=== PATIENT | female | born 1985 | race Caucasian/White ===

== ENCOUNTER 2018-06-11 06:08 | Observation (INO) ==
[2018-06-11] MEDS ORDERED: Bupivacaine PF 0.25% Inj 30 ML Vial ONE (07:00)
[2018-06-11] MEDS ORDERED: Metoprolol Tartrate 25 MG Tablet PO SCH (07:12)
[2018-06-11] MEDS ORDERED: Chlorhexidine Gluconate 2% 1 Pack (2 Cloths) TOPICAL SCH (07:12)
[2018-06-11] MEDS ORDERED: Ketamine Inj 50 MG/5 ML Syringe IV.PUSH ONE (07:32)
[2018-06-11] MEDS ORDERED: Glycopyrrolate Inj 1 MG/5 ML Syringe IV.PUSH ONE (07:48)
[2018-06-11] MEDS ORDERED: Phenylephrine/NS 1000 MCG/10ML Syringe IV.PUSH ONE (07:48)
[2018-06-11] MEDS ORDERED: Lidocaine PF 1% Inj 5 ML Syringe OTHER ONE (07:48)
[2018-06-11] MEDS ORDERED: Neostigmine Inj 5 MG/5 ML Syringe IV.PUSH ONE (07:48)
[2018-06-11] MEDS ORDERED: ceFAZolin 2 GM Premix Inj 2 GM/50 ML PIGGYBACK IV.SIG SCH (08:00)
[2018-06-11] MEDS ORDERED: Sodium Chlor 0.9% Inj 500 ML IV.SIG SCH (08:00)
[2018-06-11] MEDS ORDERED: HYDROmorphone PF Inj 1 MG/ML Ampul IV.PUSH PRN ×2 (10:17→10:59)
[2018-06-11] MEDS ORDERED: Ibuprofen 600 MG Tablet PO PRN (10:17)
[2018-06-11] MEDS ORDERED: LORazepam 0.5 MG Tablet PO PRN (10:17)
[2018-06-11] MEDS ORDERED: *Meperidine Inj 25 MG/ML Vial PERIprocedural Use ONLY ONE (10:43)
[2018-06-11] MEDS ORDERED: fentaNYL Citrate Inj 100 MCG/2 ML Ampul ONE (10:45)
[2018-06-11] MEDS ORDERED: *morphine SULFATE 4 MG/ML PERIprocedure ONLY ONE (11:09)
[2018-06-11] MEDS ORDERED: HYDROmorphone PF Inj 2 MG/ML Vial ONE (11:16)
[2018-06-11] MEDS: HYDROmorphone PF Inj 2 MG/ML Vial ONE ×2 (11:16→12:00)
--- NOTE | 2018-06-11 11:21 | MP ---
cc: Jordon Isaacs MD DATE OF OPERATION: 06/11/2018 PREOPERATIVE DIAGNOSIS: 1. The patient with chronic history of pelvic pain. 2. History of adenomyosis. 3. Severe dysmenorrhea. PROCEDURE: Exam under anesthesia, operative laparoscopy with total hysterectomy. POSTOPERATIVE DIAGNOSES: 1. The patient with chronic history of pelvic pain. 2. History of adenomyosis. 3. Severe dysmenorrhea. SURGEON: Jordon Isaacs MD. ANESTHESIA: General with endotracheal motion. ESTIMATED BLOOD LOSS: 50 mL. DRAINS: Lester to gravity. SPECIMEN: Included cervix and uterus. INDICATIONS FOR PROCEDURE: The patient with a long history of chronic pelvic pain. Previous procedures include operative laparoscopy and endometrial ablation for heavy, painful menses. The patient has had a chronic debilitating cyclic pain consistent with adenomyosis. Options were discussed. The patient elected for simple hysterectomy. Preoperative patient received Ancef 2 grams prophylactically. PROCEDURE DESCRIPTION: The patient was taken to the operating room in stable condition and underwent general anesthesia with endotracheal intubation. She was carefully positioned in dorsal lithotomy position using Aaron stirrups on the lower extremities. She had sequentials placed for VTE prophylaxis. She was prepped and draped. Timeout was conducted and agreed by all present in the room. Lester catheter was then inserted by sterile technique draining clear urine. The cervix was then visualized with a bivalve retractor. Single-tooth tenaculum was used to secure the cervix anteriorly. A uterine sound was placed to about 8 cm and the cervix was dilated to place a VCare device. A large VCare was selected and secured to the cervix. Retractors and instruments were removed. Gloves were changed. The abdomen was examined. She had previous laparoscopic incisions that are well healed. There was no hernia. The umbilical port was chosen first injected with 0.25% plain Marcaine and then using a 5 mm Visiport trocar, placing it directly into the peritoneal cavity. Insufflation at low pressure was uncomplicated. The patient was placed in Trendelenburg positioning. Evaluation of her pelvic anatomy was confirmed. Procedure continued by placing operative laparoscopy trocar sites, 8 mm trocars were placed, 1 on the left, 2 on the right. The umbilical port was increased to a 12 mm camera port. The Mc4 patient cart was side- docked with a #2 arm on the left and#1 and #3 on the right. Monopolar scissors were secured to the #2 arm. Bipolar graspers were attached to #1 and a fenestrated grasper to #3. A 0-degree lens was used for the camera. There is no occlusions with the operative arms. Attention was directed to the surgeon's cart. We are visualization of the anatomy was made, identification of all vital structures. Both ureters, adjacent vital structures were documented. Dissection initiated by dividing the round ligament, initiating from the left side, opening the retroperitoneal space, and then taking the peritoneum down off of the lower uterine segment for the bladder flap. The patient elected to keep her ovaries. The uteroovarian pedicles were skeletonized and ligated hemostatically and then allowed to fall into a dependent position on the pelvic sidewall. The uterine artery and vein were meticulously skeletonized and ligated hemostatically and then the pedicle was secured. The contralateral side was then dissected in the exact same fashion with similar results. Skeletization of the vessels was accomplished with good hemostasis. Both ovaries were left in the dependent position. The colpotomy incision was made circumferentially using the monopolar scissors. Using the VCare as a backstop and then the uterus intact with the cervix was retrieved and pulled through the vaginal opening by the phlebotomist lab assistant. A #1 Stratafix suture was then introduced through the vaginal cuff by the phlebotomist lab assistant. The #2 arm was replaced with a Karl-Cut needle truck driver rubbish collector and then closure of the cuff was accomplished with a linear fashion with good result. The vaginal cuff was tested for integrity by placing a sponge stick by the phlebotomist lab assistant, applying gentle pressure to the cuff and good closure was noted. There was no suppuration. There was no active bleeding. The suture needle was trimmed flush with the peritoneum and secured. At that point, the ovaries were felt to be pendulous and a 2-0 Vicryl suture was used on an SH needle introduced through the #2 arm trocar and then interrupted [id number] sutures were used to reapproximate each ovary to the sidewall securing it to the portion of the round ligament and the antimesenteric surface of the ovary. No active bleeding or hematoma was noted. Both ovaries were secured. At that point, the suture was then trimmed and then attention was directed back to the straight laparoscopy where the da Isaac patient cart was undocked. Straight instruments were used to retrieval of the suture needles was complete. Full counts being correct. Pelvis irrigated with copious normal saline. Ethicon snow hemostatic material was placed over the vaginal cuff for added hemostatic control. The umbilical port was then closed with a #1 Vicryl suture in a simple fashion using a UR-6 needle. Observation of the pelvis off pressure and after completion of all retrieval of all irrigation fluid proved hemostatic with no bleeding. Both ureters were peristalsing normally with good filling of the bladder with clear urine draining throughout the entire case. At the completion of the closure of the umbilicus and confirmation of hemostasis, the pneumoperitoneum was decompressed to be remaining trocars. The trocars were retrieved. All skin incisions were closed with a subcuticular stitch of 4-0 Monocryl. Steri-Strips were placed over the incision. There was no vaginal bleeding. In examining the cuff at the end of the completion of the case, the patient was stable. She was extubated and taken to the recovery room on room air. MD GERBER Portillo/[place] , 10:31 AM , 10:43 AM
[2018-06-11] MEDS ORDERED: *Ondansetron Inj 4 MG/2 ML Vial PERIprocedural Use ONLY ONE (11:47)
[2018-06-11] MEDS ORDERED: Ketorolac Inj 30 MG/ML (IVP) Vial ONE (12:11)
[2018-06-11] MEDS ORDERED: Ketorolac Inj 30 MG/ML (IVP) Vial IV.PUSH ONE (12:45)
[2018-06-11] MEDS ORDERED: Sodium Chlor 0.9% Inj 250 ML IV.SIG ONE ×2 (13:00→14:00)
[2018-06-11 14:57] LABS: Hematocrit 37.7 % (35.0-46.0); Hemoglobin 12.9 gm/dL (11.6-15.3)
[2018-06-12 05:47] VITALS: RESP 18
--- NOTE | 2018-06-12 06:59 | P.PNOB ---
Assessment and Plan - Postoperative Procedures Operation Date: 06/11/18 08:00 Actual Procedures Side Surgeon p ROBOTIC ASSISTED LAPAROSCOPIC TOTAL HYSTERECTOMY Jordon Isaacs MD Postoperative day: 1 Postoperative status: doing well Postoperative plan: routine post-op care, ambulate, voiding trials - Time Spent With Patient Total time spent is greater than 50% in coordination of care (as documented) at patient's floor/unit and/or counseling patient: less than 15 minutes Subjective Interval history: POD#1, s/p TLH, patient doing much better this am. Tolerating po,no N/V/D. Pain is well managed Subjective: patient reports feeling better, patient desires discharge, pain is well controlled, patient is tolerating oral intake Physical Exam Vital signs: Temp Pulse Resp BP Pulse Ox 98.1 F 65 18 102/57 L 98 06/12/18 04:00 06/12/18 04:00 06/12/18 04:00 06/12/18 04:00 06/12/18 04:00 - Constitutional no acute distress - Routine HEENT Exam Eye: Present: EOMI, PERRL - Routine Neck Exam Present: full ROM - Routine Respiratory Exam Absent: accessory muscle use, respiratory distress - Routine Cardiovascular Exam Absent: tachycardia - Routine Abdominal Exam Present: soft, wound (C/D/I). Absent: distended, guarding - Routine Extremities Exam Absent: cyanosis, edema, calf tenderness, tenderness - Routine Skin Exam Present: intact, dry - Detailed Neurological Exam: Coma Scale Eye Opening: Spontaneous Verbal Response: Oriented - Urinary Catheter Management Indwelling Urethral Catheter Cath placed during this visit: yes Urethral indwelling: No Insertion date: 06/11/18 Results - Labs CBC & Chem 7: 06/11/18 14:43 Labs: Laboratory Results - last 24 hr 06/11/18 14:43 Hgb 12.9 Hct 37.7 Progress Note: Quality - AMI Clinical Trial Participant: No - VTE Deep Vein Thrombosis/Pulmonary Embolism Present on Admission: No
[2018-06-12 07:57] LABS: Baso % (Auto) 0.1 % (0.0-2.0); Eos # (Auto) 0.1 th/mm3 (0.0-0.4); Eos % (Auto) 0.5 % (0.0-4.0); Hematocrit 35.1 % (35.0-46.0); Hemoglobin 11.6 gm/dL (11.6-15.3); Lymph # (Auto) 2.7 th/mm3 (1.0-4.8); Lymph % (Auto) 19.4 % (9.0-44.0); Mean Corpuscular HGB Conc 33.2 % (32.0-36.0); Mean Corpuscular Hemoglobin 29.4 pg (27.0-34.0); Mean Corpuscular Volume 88.7 fL (80.0-100.0); Mean Platelet Volume 10.2 fL (7.0-11.0); Mono # (Auto) 0.7 th/mm3 (0.0-0.9); Mono % (Auto) 5.1 % (0.0-8.0); Neut # (Auto) 10.3 th/mm3 (1.8-7.7); Neut % (Auto) 74.9 % (16.0-70.0); Platelet Count 172 th/mm3 (150-450); Red Blood Count 3.96 mil/mm3 (4.00-5.30); Red Cell Distribution Width 13.1 % (11.6-17.2); White Blood Count 13.8 th/mm3 (4.0-11.0)
[2018-06-12 11:46] VITALS: BP 121/65; PULSE 64; TEMP 98.3; O2SAT 97
== END 2018-06-12 12:11 | disposition home or self-care (01) ==
LOC: H1EA 06:08 → HSDC 06:08
PROVIDERS: ADMIT Obstetrics & Gynecology; ATTEND Obstetrics & Gynecology